=== PATIENT | male | born 1950 | race Caucasian/White ===

== ENCOUNTER → 2019-04-03 | Outpatient (CLI) | payer BC, MEDICARE ==
[~2019-04-03] MED LIST: Benadryl 50 mg50 MG PO; Pepcid20 MG PO; Prednisone20 MG PO
== END | disposition home or self-care (01) ==
LOC: LAB SHORT 07:38 → PLD 07:38
DX: D36.17 Benign neoplasm of peripheral nerves and autonomic nervous system of trunk, unspecified (principal); L30.8 Other specified dermatitis
CPT/HCPCS: 88305; 88312

== ENCOUNTER → 2020-02-12 | Outpatient (CLI) | payer BC, MEDICARE | LOC: LAB SHORT 15:27 → PLD 15:27 | DX: L82.1 Other seborrheic keratosis (principal); D48.5 Neoplasm of uncertain behavior of skin | CPT/HCPCS: 88305 ==